=== PATIENT | male | born 1970 | race Caucasian/White ===

== ENCOUNTER → 2023-11-07 15:58 | Outpatient (REF) | payer BC, SELFPAY | LOC: HWRCS 15:58 | PROVIDERS: ATTENDING PHYSICIAN Internal Medicine Interventional Cardiology; FAMILY PHYSICIAN Physician Assistant Medical | DX: I25.10 Atherosclerotic heart disease of native coronary artery without angina pectoris (principal) | CPT/HCPCS: 93306 ==